=== PATIENT | female | born 1930 | race Caucasian/White ===

== ENCOUNTER 2017-01-15 14:45 | Inpatient (IN) | payer MEDICARE, BC ==
--- NOTE | 2017-01-15 15:09 | ED ---
General Adult HPI - General Chief complaint: Extremity Injury, Lower Stated complaint: RT FEMUR Fx Time Seen by Provider: 01/15/17 14:47 Source: EMS, RN notes reviewed, old records reviewed Mode of arrival: EMS Limitations: no limitations - History of Present Illness Initial comments: This is an 86-year-old female to the ER for evaluation. Patient sepsis a evaluation regarding fall. Patient has a significant medical history. No blood thinners. Patient is trying to transfer and she is nonambulatory which she does stand and bear weight, patient also pivots. When this happened patient lost her balance fell backward twisting leg and complaining of significant right knee pain. Patient denies any other complaints or issues from injury - Related Data Home Medications Medication Instructions Recorded Confirmed Acetaminophen Tab [Tylenol Tab] 650 mg PO HS 01/15/17 01/15/17 Atorvastatin Calcium [Lipitor] 10 mg PO HS 01/15/17 01/15/17 Brimonidine Tartrate [Alphagan P 1 drops LEFT EYE BID 01/15/17 01/15/17 0.1% Ophth Soln] Calcium Carbonate [Calcium] 1,200 mg PO DAILY 01/15/17 01/15/17 Docusate [Colace] 100 mg PO HS 01/15/17 01/15/17 Furosemide [Lasix] 20 mg PO DAILY 01/15/17 01/15/17 Levothyroxine Sodium [Synthroid] 150 mcg PO DAILY 01/15/17 01/15/17 [place]-3 Fatty Acids/Fish Oil [Fish 1 cap PO DAILY 01/15/17 01/15/17 Oil 1,000 mg Softgel] Potassium Chloride ER [K-Dur 10] 10 meq PO DAILY 01/15/17 01/15/17 Spironolactone [Aldactone] 12.5 mg PO BID 01/15/17 01/15/17 Warfarin Sodium [Coumadin] 2 mg PO SUSA 01/15/17 01/15/17 Warfarin Sodium [Coumadin] 4 mg PO MOTUWETHFR 01/15/17 01/15/17 amLODIPine [Norvasc] 5 mg PO DAILY 01/15/17 01/15/17 traMADol HCL [Ultram] 50 mg PO TID PRN 01/15/17 01/15/17 Allergies Allergy/AdvReac Type Severity Reaction Status Date / Time ketorolac [From Toradol] Allergy Unknown Verified 01/15/17 15:11 NSAIDS (Non-Steroidal Allergy Unknown Verified 01/15/17 15:11 Anti-Inflamma Review of Systems ROS Statement: Those systems with pertinent positive or pertinent negative responses have been documented in the HPI. ROS Other: All systems not noted in ROS Statement are negative. Past Medical History Past Medical History: Hypertension Additional Past Medical History / Comment(s): hypothyrodism, Lordosis, Cystocele. History of Any Multi-Drug Resistant Organisms: None Reported Additional Past Surgical History / Comment(s): 7 Orthopedic surgery. bowel resection 84. eye surgery. lordosis. cystocele Past Psychological History: No Psychological Hx Reported Smoking Status: Never smoker Past Alcohol Use History: None Reported Past Drug Use History: None Reported General Exam Limitations: no limitations General appearance: alert, in no apparent distress Head exam: Present: atraumatic, normocephalic, normal inspection Eye exam: Present: normal appearance, PERRL, EOMI. Absent: scleral icterus, conjunctival injection, periorbital swelling ENT exam: Present: normal exam, mucous membranes moist Neck exam: Present: normal inspection. Absent: tenderness, meningismus, lymphadenopathy Respiratory exam: Present: normal lung sounds bilaterally. Absent: respiratory distress, wheezes, rales, rhonchi, stridor Cardiovascular Exam: Present: regular rate, normal rhythm, normal heart sounds. Absent: systolic murmur, diastolic murmur, rubs, gallop, clicks GI/Abdominal exam: Present: soft, normal bowel sounds. Absent: distended, tenderness, guarding, rebound, rigid Extremities exam: Present: normal inspection, full ROM, normal capillary refill. Absent: tenderness, pedal edema, joint swelling, calf tenderness Back exam: Present: normal inspection Neurological exam: Present: alert, oriented X3, CN II-XII intact Psychiatric exam: Present: normal affect, normal mood Skin exam: Present: warm, dry, intact, normal color. Absent: rash Course Vital Signs 01/15/17 14:51 Temperature 98.6 F Pulse Rate 76 Respiratory 20 Rate Blood Pressure 122/76 O2 Sat by Pulse 95 Oximetry - Reevaluation(s) Reevaluation #1: 01/15/17 15:49 Fifth finger paperwork is thoroughly reviewed as well as speaking with transferring physician Medical Decision Making - Medical Decision Making 86 female to the ER status post fall, patient is accepted in evaluation of transfer. Patient fall with fever fracture. Patient has both knee and right hip prosthesis. Patient will be admitted for pain control at this time an orthopedic evaluation Disposition Clinical Impression: Right femoral fracture, Fall Disposition: ADMITTED IP TO THIS HOSP Condition: Fair Referrals: Danii Poe FNPBC [Primary Care Provider] - 1-2 days
[2017-01-15] MEDS ORDERED: SODIUM CHLORIDE 0.9% 1,000 ML IV ONE (15:47)
[2017-01-15] MEDS ORDERED: MORPHINE SULFATE 10 MG/ML SYRINGE IVP STA (15:48)
[2017-01-15] MEDS ORDERED: Acetaminophen-Codeine 300-30mg TAB PO PRN (18:22)
[2017-01-15] MEDS: MORPHINE SULFATE 10 MG/ML SYRINGE IVP PRN (19:27)
[2017-01-15] MEDS: SPIRONOLACTONE 25 MG TAB PO SCH (20:33)
[2017-01-15] MEDS: BRIMONIDINE TARTRATE 0.2% DROPS 5 ML BTL LEFT EYE SCH (20:33)
[2017-01-15] MEDS: ATORVASTATIN 10 MG TAB PO SCH (20:33)
[2017-01-15] MEDS ORDERED: POLYETHYLENE GLYCOL 3350 17 GM POWD.PACK PO SCH (22:15)
--- NOTE | 2017-01-15 23:25 | HP ---
HISTORY AND PHYSICAL DATE OF ADMISSION: 01/15/2017 PRESENTING COMPLAINT: Fall. HISTORY OF PRESENTING COMPLAINT: This is an 86-year-old patient, follows with DARYL Weinberg. Chronic stable medical conditions include atrial fibrillation, for which she is on Coumadin, hypertension, hyperlipidemia, osteoarthritis, hypothyroid, cystocele, aortic stenosis. The patient pretty much uses a wheelchair. Patient presented from hospital from [facility] when she fell out and has a fracture of the distal femur of the right leg. Patient's daughter- in-law is with her. The patient did come from [facility] for the orthopedic opinion from [facility]. Patient is at baseline, does not have much of an appetite. Often constipated. REVIEW OF SYSTEMS: CONSTITUTIONAL: Tired. HEENT: Decreased hearing. RESPIRATORY: None. CARDIOVASCULAR: None. GASTROINTESTINAL: Constipation. GENITOURINARY: Cystocele. MUSCULOSKELETAL: As above and pain in different joints. DERMATOLOGICAL: None. HEMATOLOGICAL: None. LYMPHATIC: None. PSYCHIATRY: None. NEUROLOGICAL: None. PAST HISTORY: Atrial fibrillation, hypertension, hyperlipidemia, osteoarthritis, hypothyroid, cystocele, aortic stenosis, medical debility, bowel cancer in 1983 with surgery. PAST SURGICAL HISTORY: Cholecystectomy, cardiac catheterization, bowel resection, bilateral cataract surgery, right inguinal hernia repair, bilateral posterior colpotomies, right eye detachment, left eye detached x2, left knee replaced, left total shoulder, right total knee replacement, left total hip replacement, of fluid from left inner thigh, umbilical hernia repair. SOCIAL HISTORY: , lives in a single-level home with a ramp, has a seated walker. Does not smoke. No alcohol. FAMILY HISTORY: Colon cancer. HOME MEDICATIONS: 1. Coumadin 3 mg on Friday, Friday, 4 mg on other days. 2. Norvasc 5 mg a day. 3. Colace 100 mg q.h.s. 4. Calcium 200 mg p.o. daily. 5. Alphagan 0.1% 1 drop to left eye b.i.d. 6. Lipitor 10 mg p.o. q.h.s. 7. Ultram 50 mg p.o. t.i.d. p.r.n. 8. Potassium 10 mEq p.o. daily. 9. Fish oil 1000 mg p.o. daily. 10.Aldactone 12.5 p.o. b.i.d. 11.Synthroid 150 mcg p.o. daily. 12.Lasix 20 mg p.o. daily. ALLERGIES: TORADOL. PHYSICAL EXAMINATION: VITAL SIGNS: On presentation, temperature 98.6, pulse 76, respirations 20, blood pressure 122/76, pulse ox 95% on 4L. GENERAL APPEARANCE: Average built, lying in bed, tired-appearing. EYES: Pupils equal. Conjunctivae look pale. HEENT: Oral cavity normal. NECK: JVD not raised. Mass not palpable. RESPIRATORY: Effort normal. Lungs are clear. CARDIOVASCULAR: First and second sounds are normal. No edema. ABDOMEN: Soft, nontender. Liver and spleen not palpable. LYMPHATIC: No lymph node palpable in neck or axillae. PSYCHIATRY: Alert and oriented x3. Mood is slightly anxious-appearing. NEUROLOGICAL: Pupils equal. Cranial nerve grossly intact. Power grossly intact. EXTREMITIES: Right knee is a bit bent and tender just below the knee. INVESTIGATIONS: Do not have immediate access from [place]. A CT scan has the radiologic results. ASSESSMENT: 1. Right distal femur fracture secondary to fall and the patient is pretty much wheelchair-bound, is able only to pivot at the baseline. 2. Persistent atrial fibrillation chronically on Coumadin. 3. Essential hypertension. 4. Hyperlipidemia. 5. Primary osteoarthritis, multiple joints. 6. Hypothyroid. 7. Chronic cystocele. PLAN: Home medications are resumed. Coumadin is being held temporarily. Per the patient's daughter, the patient's last INR was 2 days ago, was 1.9. Patient has been taking Coumadin. Will get opinion from [facility] and take it from there. Maybe a nonsurgical intervention may be done, though sometimes a rosalina to stabilize the fracture may be beneficial in terms of pain. PATIENT'S CURRENT CODE STATUS IS FULL CODE. MMODL / IJN: [id number] /
[2017-01-16] MEDS: MORPHINE SULFATE 10 MG/ML SYRINGE IVP PRN ×2 (00:48→04:53)
[2017-01-16] MEDS: Acetaminophen-Codeine 300-30mg TAB PO PRN ×3 (02:30→20:22)
[2017-01-16] MEDS: LEVOTHYROXINE 75 MCG TAB PO SCH (06:14)
[2017-01-16 06:55] LABS: Basophils % (A) 0 %; CH 31.2; CHCM 32.5; Eosinophils # (A) 0.3 k/uL (0-0.7); Eosinophils % (A) 3 %; HCT 39.3 % (34.0-46.0); HDW 2.78; HGB 12.6 gm/dL (11.4-16.0); Luc # (Auto) 0.07; Luc % (Auto) 1; Lymphocytes # (A) 0.6 k/uL (1.0-4.8); Lymphocytes % (A) 6 %; MCHC 32.2 g/dL (31.0-37.0); MCV 96.5 fL (80.0-100.0); Mean Platelet Volume 6.9; Monocytes # (A) 0.5 k/uL (0-1.0); Monocytes % (A) 6 %; Neutrophils # (A) 8.1 k/uL (1.3-7.7); Neutrophils % (A) 85 %; RBC 4.08 m/uL (3.80-5.40); RDW 12.6 % (11.5-15.5); WBC 9.6 k/uL (3.8-10.6); WBC (Perox) 9.47
[2017-01-16 07:08] LABS: INR 1.7 (<1.2); Prothrombin Time 16.5 sec (9.0-12.0)
[2017-01-16 07:32] LABS: Anion Gap 10 mmol/L; Blood Urea Nitrogen 16 mg/dL (7-17); Calcium 9.2 mg/dL (8.4-10.2); Carbon Dioxide 22 mmol/L (22-30); Chloride 100 mmol/L (98-107); Glucose 93 mg/dL (74-99); Non-African American GFR(MDRD) >60 (>60 ml/min/1.73 sqM); Potassium 4.9 mmol/L (3.5-5.1); Sodium 132 mmol/L (137-145)
--- NOTE | 2017-01-16 08:43 | P.CNOR ---
History of Present Illness - [facility] Consult date: 01/16/17 Consult reason: fracture (Right distal femur fracture) History of present illness: This is an 86-year-old female admitted to [facility] on 2016 after being transferred from [facility]. She fell on 2016 when she missed her chair when transferring from her wheelchair. States that she landed on her buttocks and did not flex her knee during the fall. She complains of significant thigh pain since the fall. She is transferred to [facility] for orthopedic evaluation. She is admitted to internal medicine we're consulted for evaluation of her right femur fracture. Past Medical History Past Medical History: Atrial Fibrillation, Cancer, Eye Disorder, Hyperlipidemia , Hypertension, Osteoarthritis (OA), Thyroid Disorder Additional Past Medical History / Comment(s): hypothyrodism, Lordosis, Cystocele -has a pessory, lt eye glaucoma past cellulitis lt leg(mrsa). aortic stenosis, shingles rt arm 2014, bowel cancer 1983 had sx -no chemo. falls and since fall in march 2016 pt not ambulatory. uses w/c, able to pivot w/assist History of Any Multi-Drug Resistant Organisms: MRSA Year Discovered:: 2009 MDRO Source:: lt leg Past Surgical History: Cholecystectomy, Heart Catheterization Additional Past Surgical History / Comment(s): colonoscopy, bowel resection 1983 ,tonia cataracts,rt inguinal hernia repair, tonia posterior copulotomies, rt eye detatceh retina, lt eye detatched x2, lt total knee replace, lt tptal shoulder, rt total knee replacement,lt total hip replacement,excision of fluid lt inner thigh,umb hernia repair. Past Anesthesia/Blood Transfusion Reactions: Previous Problems w/ Anesthesia Additional Past Anesthesia/Blood Transfusion Reaction / Comm: post op stridor- resolved with meds Smoking Status: Former smoker - Past Family History Mother Family Medical History: Cancer Additional Family Medical History / Comment(s): colon cancer Father Family Medical History: CVA/TIA Medications and Allergies Home Medications Medication Instructions Recorded Confirmed Type Acetaminophen Tab [Tylenol Tab] 650 mg PO HS 01/15/17 01/15/17 History Atorvastatin Calcium [Lipitor] 10 mg PO HS 01/15/17 01/15/17 History Brimonidine Tartrate [Alphagan P 1 drops LEFT EYE BID 01/15/17 01/15/17 History 0.1% Ophth Soln] Calcium Carbonate [Calcium] 1,200 mg PO DAILY 01/15/17 01/15/17 History Docusate [Colace] 100 mg PO HS 01/15/17 01/15/17 History Furosemide [Lasix] 20 mg PO DAILY 01/15/17 01/15/17 History Levothyroxine Sodium [Synthroid] 150 mcg PO DAILY 01/15/17 01/15/17 History [place]-3 Fatty Acids/Fish Oil [Fish 1 cap PO DAILY 01/15/17 01/15/17 History Oil 1,000 mg Softgel] Potassium Chloride ER [K-Dur 10] 10 meq PO DAILY 01/15/17 01/15/17 History Spironolactone [Aldactone] 12.5 mg PO BID 01/15/17 01/15/17 History Warfarin Sodium [Coumadin] 3 mg PO SUSA 01/15/17 01/15/17 History Warfarin Sodium [Coumadin] 4 mg PO MOTUWETHFR 01/15/17 01/15/17 History amLODIPine [Norvasc] 5 mg PO DAILY 01/15/17 01/15/17 History traMADol HCL [Ultram] 50 mg PO TID PRN 01/15/17 01/15/17 History Allergies Allergy/AdvReac Type Severity Reaction Status Date / Time ketorolac [From Toradol] Allergy Unknown Verified 01/15/17 15:11 NSAIDS (Non-Steroidal Allergy Unknown Verified 01/15/17 15:11 Anti-Inflamma Physical Examination This is a pleasant 86-year-old female in no acute distress. She is alert and oriented 3. Her daughter is present at bedside. Exam of the head neck reveal no obvious deformity. She has full cervical spine motion without difficulty or pain. There is no pain with palpation about cervical spine or paraspinal musculature. Exam of the upper extremities is unremarkable. She has full shoulder, elbow, wrist and finger motion without difficulty or pain. There are no obvious deformities or swelling noted. Exam of the lower extremities there is a knee immobilizer in place to the right leg. She has significant pain with any motion to the right leg. Immobilizer is removed. There are no obvious deformities. There is no ecchymosis or erythema. She has full foot and ankle motion bilaterally. Neurovascular status to the lower extremities is intact. Results X-ray and CT of the right femur reveal a nondisplaced periprosthetic fracture of the distal femur noted only on the medial cortex. No other bony modalities are noted. Knee and hip implants noted to the left leg as well. All implants are in good position and alignment. No gross evidence of loosening. - Labs Labs: Abnormal Lab Results - Last 24 Hours (Table) 01/16/17 01/16/17 01/16/17 Range/Units 06:29 06:29 06:29 Plt Count 128 L (150-450) k/uL Neutrophils # 8.1 H (1.3-7.7) k/uL Lymphocytes # 0.6 L (1.0-4.8) k/uL PT 16.5 H (9.0-12.0) sec INR 1.7 H (<1.2) Sodium 132 L (137-145) mmol/L H & H 01/16/17 Range/Units 06:29 Hgb 12.6 (11.4-16.0) gm/dL Hct 39.3 (34.0-46.0) % Coagulation 01/16/17 Range/Units 06:29 INR 1.7 H (<1.2) Result Diagrams: 01/16/17 06:29 01/16/17 06:29 Assessment and Plan (1) Periprosthetic fracture around internal prosthetic right knee joint Current Visit: Yes Status: Acute Code(s): M97.11XA - PERIPROSTH FRACTURE AROUND INTERNAL PROSTH R KNEE JT, INIT SNOMED Code(s): 670084422 (2) Fall Current Visit: Yes Status: Acute Code(s): W19.XXXA - UNSPECIFIED FALL, INITIAL ENCOUNTER SNOMED Code(s): 0762643 (3) Right femoral fracture Current Visit: Yes Status: Acute Code(s): S72.91XA - UNSP FRACTURE OF RIGHT FEMUR, INIT FOR CLOS FX SNOMED Code(s): 76639257 Plan: The clinical and x-ray findings are discussed the patient and her daughter. The patient is nonambulatory and general. With her nondisplaced fracture, I believe is best treated with immobilization. She will remain in the knee immobilizer and be nonweightbearing to the right lower extremity. We will re-x- ray the knee in 1 week and will most likely follow with serial x-rays. She may be transferred to a rehab facility when cleared medically and accepted.
--- NOTE | 2017-01-16 09:58 | XR ---
EXAMINATION TYPE: XR chest 1V portable DATE OF EXAM: 01/16/2017 COMPARISON: NONE INDICATION: Low O2 saturation TECHNIQUE: Single frontal view of the chest is obtained. FINDINGS: The heart size is enlarged. The pulmonary vasculature is normal. The lungs are clear. EKG leads overlie the chest. IMPRESSION: 1. Cardiomegaly
[2017-01-16] MEDS: POTASSIUM CHLORIDE ER 10 MEQ TAB.ER.PRT PO SCH (10:15)
[2017-01-16] MEDS: ENOXAPARIN 40 MG/0.4 ML SYRINGE SQ SCH (10:15)
[2017-01-16] MEDS: BRIMONIDINE TARTRATE 0.2% DROPS 5 ML BTL LEFT EYE SCH ×2 (10:15→20:21)
[2017-01-16] MEDS: traMADol 50 MG TAB PO PRN (10:23)
[2017-01-16] MEDS: SODIUM CHLORIDE 0.9% 1,000 ML IV SCH ×2 (11:27→22:45)
[2017-01-16] MEDS: FUROSEMIDE 20 MG TAB PO SCH (14:27)
[2017-01-16] MEDS: SPIRONOLACTONE 25 MG TAB PO SCH ×2 (14:27→20:22)
[2017-01-16] MEDS: amLODIPine 5 MG TAB PO SCH (14:27)
[2017-01-16 14:29] VITALS: BMI 26.6
[2017-01-16] MEDS: WARFARIN 2 MG TAB PO SCH (17:20)
--- NOTE | 2017-01-16 19:41 | PN ---
PROGRESS NOTE DATE OF SERVICE: 01/16/2017. PRESENTING COMPLAINT: Right femur fracture. INTERVAL HISTORY: Patient presented with right femur fracture. Seen by Orthopedics. Immobilizer to be used. Not for any surgical intervention at her baseline as patient is pretty much nonambulatory. REVIEW OF SYSTEMS: Done for constitutional, cardiovascular, GI, pulmonary; relevant findings as above. CURRENT MEDICATIONS: Reviewed. PHYSICAL EXAMINATION: Temperature 97.9, pulse 87, respirations 16, blood pressure 100/66, pulse ox 93% on 3L. GENERAL APPEARANCE: Sitting up, comfortable. EYES: Conjunctivae normal. NECK: JVD not raised. RESPIRATORY: Effort normal. Lungs are clear. CARDIOVASCULAR: 1st and 2nd sounds normal. No edema. ABDOMEN: Soft, nontender. Liver and spleen not palpable. EXTREMITIES: No edema. INVESTIGATIONS: White count 9.6, potassium 4.9, INR 1.7. ASSESSMENT: 1. Right distal periprosthetic fracture secondary to fall, nondisplaced, for supportive cast, not for any surgical intervention. 2. Persistent atrial fibrillation chronically on Coumadin. 3. Essential hypertension. 4. Hyperlipidemia. 5. Primary osteoarthritis multiple joints. 6. Hypothyroid. 7. Chronic cystocele. 8. 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 PLAN: Continue medication and treatment plan. Care was discussed with the patient. Looking at patient will probably go to inpatient rehab. MMODL / IJN: [id number] /
[2017-01-16] MEDS: ATORVASTATIN 10 MG TAB PO SCH (20:22)
[2017-01-17] MEDS: LEVOTHYROXINE 75 MCG TAB PO SCH (05:36)
[2017-01-17] MEDS: Acetaminophen-Codeine 300-30mg TAB PO PRN ×2 (05:36→17:08)
[2017-01-17] MEDS ORDERED: ONDANSETRON 4 MG/2 ML VIAL IVP PRN (07:09)
[2017-01-17] MEDS: SODIUM CHLORIDE 0.9% 1,000 ML IV SCH ×2 (08:38→15:31)
[2017-01-17] MEDS: ENOXAPARIN 40 MG/0.4 ML SYRINGE SQ SCH (08:38)
[2017-01-17] MEDS: amLODIPine 5 MG TAB PO SCH (08:39)
[2017-01-17] MEDS: SPIRONOLACTONE 25 MG TAB PO SCH ×2 (08:39→21:26)
[2017-01-17] MEDS: POTASSIUM CHLORIDE ER 10 MEQ TAB.ER.PRT PO SCH (08:39)
[2017-01-17] MEDS: BRIMONIDINE TARTRATE 0.2% DROPS 5 ML BTL LEFT EYE SCH ×2 (08:39→21:26)
[2017-01-17] MEDS: FUROSEMIDE 20 MG TAB PO SCH (08:39)
[2017-01-17] MEDS: traMADol 50 MG TAB PO PRN (11:54)
[2017-01-17] MEDS ORDERED: POLYETHYLENE GLYCOL 3350 17 GM POWD.PACK PO SCH (12:00)
[2017-01-17] MEDS: WARFARIN 2 MG TAB PO SCH (17:09)
[2017-01-17] MEDS: ATORVASTATIN 10 MG TAB PO SCH (21:26)
--- NOTE | 2017-01-17 22:39 | PN ---
PROGRESS NOTE DATE OF SERVICE: 01/17/2017 PRESENTING COMPLAINT: Right femur fracture. INTERVAL HISTORY: This patient presented with right femur fracture. Immobilizer to be used. Patient will be going to inpatient rehab. Appetite has not been very good, often gets constipated. REVIEW OF SYSTEMS: Done for constitutional, cardiovascular, GI, pulmonary, musculoskeletal; relevant findings as above. CURRENT MEDICATIONS: Reviewed. EXAMINATION: Temperature 98, pulse 106, respirations 16, blood pressure 89/61, pulse ox 94% on room air. GENERAL APPEARANCE: Sitting up. EYES: Pupils equal. Conjunctivae normal. NECK: JVD not raised. Mass not palpable. RESPIRATORY: Effort normal. LUNGS: Clear. CARDIOVASCULAR: First and second sounds normal. No edema. ABDOMEN: Soft, nontender. Liver and spleen not palpable. RIGHT LEG: In a brace. INVESTIGATIONS: No blood work from today. ASSESSMENT: 1. Right distal periprosthetic fracture of the femur, nondisplaced for for supportive brace, not for surgical intervention. 2. Persistent atrial fibrillation chronically on Coumadin. 3. Essential hypertension. 4. Hyperlipidemia. 5. Primary osteoarthritis in multiple joints. 6. Hypothyroid. 7. Chronic cystocele. 8. Gait dysfunction, baseline was using a walker. PLAN: Continue current medication and treatment plan. Looking at going to the rehab hopefully tomorrow. Patient be going to the [facility] tomorrow. MMODL / IJN: [id number] /
[2017-01-18] MEDS: Acetaminophen-Codeine 300-30mg TAB PO PRN ×2 (01:03→12:25)
[2017-01-18 02:31] VITALS: RESP 16
[2017-01-18] MEDS: SODIUM CHLORIDE 0.9% 1,000 ML IV SCH (03:33)
[2017-01-18] MEDS: traMADol 50 MG TAB PO PRN ×2 (04:25→15:16)
[2017-01-18] MEDS: LEVOTHYROXINE 75 MCG TAB PO SCH (05:29)
[2017-01-18 08:25] VITALS: BP 121/80; PULSE 103; TEMP 97.6
[2017-01-18] MEDS: FUROSEMIDE 20 MG TAB PO SCH (08:31)
[2017-01-18] MEDS: SPIRONOLACTONE 25 MG TAB PO SCH (08:31)
[2017-01-18] MEDS: POTASSIUM CHLORIDE ER 10 MEQ TAB.ER.PRT PO SCH (08:31)
[2017-01-18] MEDS: BRIMONIDINE TARTRATE 0.2% DROPS 5 ML BTL LEFT EYE SCH (08:32)
[2017-01-18] MEDS: amLODIPine 5 MG TAB PO SCH (08:37)
--- NOTE | 2017-01-18 14:30 | DS ---
DISCHARGE SUMMARY DATE OF ADMISSION: 01/15/2017 DATE OF DISCHARGE: 01/18/2017 FINAL DIAGNOSIS: 1. Acute right distal femur fracture periprosthetic nondisplaced not for surgical intervention. 2. Persistent atrial fibrillation, chronically on Coumadin. 3. Essential hypertension. 4. Hyperlipidemia. 5. Primary osteoarthritis multiple joints. 6. Hypothyroid. 7. Chronic cystocele. 8. Gait dysfunction, baseline was using a walker. HOSPITAL COURSE: This is a patient who was not much ambulatory, presented with a periprosthetic fracture of the right femur. The patient was seen by Dr. Naylor from Orthopedics, not for any surgical intervention. Brace to be used for support with immobilizer and with nonweightbearing to the right lower extremity. Care was discussed with the patient. ON EXAMINATION: Lungs are clear. CARDIOVASCULAR: Heart sounds irregular. BUN 16, creatinine 0.67. DISCHARGE MEDICATIONS: 1. Lipitor 10 mg q.h.s. 2. Alphagan 0.1% 1 drop to left eye b.i.d. 3. Calcium 1200 mg p.o. daily. 4. Lasix 20 mg p.o. daily. 5. Synthroid 150 mcg p.o. daily. 6. Fish oil 1000 mg 1 capsule p.o. daily. 7. Potassium 10 mEq p.o. daily. 8. Aldactone 12.5 p.o. b.i.d. 9. Coumadin 3 mg on Friday, Friday and 4 mg on other days. 10.Norvasc 5 mg a day. 11.MiraLAX 17 grams p.o. Friday, Friday and Friday. 12.Senokot S one tab p.o. daily. 13.Ultram 50 mg p.o. t.i.d. p.r.n. for pain. DISPOSITION: [facility]. Immobilizer to the right leg. Follow up with Dr. Poe. Follow up Dr. Naylor in 1 week. Care was discussed with the patient. Discharge planning more than 35 minutes. MMODL / IJN: [id number] /
[2017-01-18] MEDS ORDERED: WARFARIN 2 MG TAB PO SCH (18:00)
== END 2017-01-18 16:00 | DRG 534 ==
LOC: EC 14:45 → 3SUR 15:47
PROVIDERS: ADMIT Hospitalist; ATTEND Hospitalist
DX: S72.401A Unspecified fracture of lower end of right femur, initial encounter for closed fracture (principal); I48.1 Persistent atrial fibrillation; I35.0 Nonrheumatic aortic (valve) stenosis; M97.11XA Periprosthetic fracture around internal prosthetic right knee joint, initial encounter; I10 Essential (primary) hypertension; M19.91 Primary osteoarthritis, unspecified site; E78.5 Hyperlipidemia, unspecified; E03.9 Hypothyroidism, unspecified; K59.00 Constipation, unspecified; N81.10 Cystocele, unspecified; H40.9 Unspecified glaucoma; R26.9 Unspecified abnormalities of gait and mobility; Z79.01 Long term (current) use of anticoagulants; Z79.899 Other long term (current) drug therapy; Z91.81 History of falling; Z99.3 Dependence on wheelchair; Z86.14 Personal history of Methicillin resistant Staphylococcus aureus infection; Z87.891 Personal history of nicotine dependence; Z85.038 Personal history of other malignant neoplasm of large intestine; Z86.19 Personal history of other infectious and parasitic diseases; Z96.612 Presence of left artificial shoulder joint; Z96.642 Presence of left artificial hip joint; Z96.653 Presence of artificial knee joint, bilateral; Z90.49 Acquired absence of other specified parts of digestive tract; Z98.42 Cataract extraction status, left eye; Z98.41 Cataract extraction status, right eye; Z88.8 Allergy status to other drugs, medicaments and biological substances; W07.XXXA Fall from chair, initial encounter; Y92.009 Unspecified place in unspecified non-institutional (private) residence as the place of occurrence of the external cause
CPT/HCPCS: 71010; 80048; 85025; 85610; 96374; 99285